=== PATIENT | female | born 1965 | race Caucasian/White ===

== ENCOUNTER 2023-05-26 21:39 | Emergency (ER) | payer OTHER ==
[2023-05-26 22:13] LABS: Absolute Lymphocytes (CBC) 1.6 K/uL (0.7-4.9); Hematocrit 44.5 % (36.0-45.0); Lymphocytes % 13.7 % (15.3-44.8); MCV 92.9 fL (80-100); MPV 8.4 fL (7.6-11.3); Platelets 207 thou/uL (152-406); RBC Red Blood Cell Count 4.79 M/uL (3.86-4.86)
[2023-05-26 22:19] LABS: Protime INR 1.26
[2023-05-26] MEDS ORDERED: ASPIRIN 81 MG CHEWABLE TABLET ONE (22:31)
[2023-05-26] MEDS ORDERED: PANTOPRAZOLE 40 MG INJ ONE (22:31)
[2023-05-26] MEDS ORDERED: LORAZEPAM 1 MG TABLET ONE (22:31)
[2023-05-26 22:32] LABS: Albumin 3.5 g/dL (3.4-5.0); Bilirubin Direct 0.2 mg/dL (0-0.2); Bilirubin Indirect, Calculated 0.5 mg/dL (0.2-0.8); Bilirubin Total 0.7 mg/dL (0.2-1.0); Troponin High Sensitivity 16.9 pg/mL (<58.9)
[2023-05-26] MEDS ORDERED: NA CHLORIDE 0.9% 1,000 ML ONE (22:32)
[2023-05-26] MEDS ORDERED: NA CHLORIDE 0.9% 250 ML ONE (22:32)
[2023-05-26] MEDS ORDERED: PROMETHAZINE INJ 25 MG/ML AMP ONE (22:34)
--- NOTE | 2023-05-26 22:35 | RAD REPORT ---
EXAM DESCRIPTION: [place] Single View05/26/2023 10:24 pm CLINICAL HISTORY: Dyspnea;Chest pain COMPARISON: No comparisons TECHNIQUE: Portable AP view of the chest. FINDINGS: Central interstitial prominence, with central predominant and basilar fluffy opacities. N o pneumothorax or effusion. The cardiomediastinal contours are unremarkable. Rhythm monitoring devic e in place. IMPRESSION: Findings suggestive of pulmonary edema as above.
[2023-05-26] MEDS ORDERED: KCL 20 MEQ/100 mL IVPB 100 ML IV ONE (23:22)
[2023-05-27] MEDS ORDERED: FUROSEMIDE 20 MG/ 2ML VIAL ONE (01:36)
[2023-05-27] MEDS ORDERED: FUROSEMIDE 20 MG TABLET ONE (01:39)
--- NOTE | 2023-05-27 01:48 | EDPHYS ---
Physician Documentation [facility] Name: Homa Teixeira Age: 57 yrs Sex: Female : 1965 Arrival Date: 05/26/2023 Time: 21:39 Bed 16 Private MD: ED Physician Ferdinand Mixon HPI: 05/26 21:56 This 57 yrs old Female presents to ER via Unassigned with complaints of CP, SOB, N/V. snw 21:56 The patient or guardian reports chest pain that is located primarily in the substernal snw area. Onset: suddenly, today, at 17:00. Onset: Pt was dx with Shingles three days ago and given antiviral and gabapentin - feels this may have precipitated N/V. The pain does not radiate. Associated signs and symptoms: Pertinent positives: nausea, shortness of breath, vomiting. The chest pain is described as clutching. Duration: The patient or guardian reports multiple episodes, took one SL NTG at home and then EMS gave one en route, helpful with CP. Pt has had three doses of Zofran, not helpful with nausea. Modifying factors: The symptoms are alleviated by NTG, X2. the symptoms are aggravated by breathing, N/V. Severity of pain: At its worst the pain was moderate severe. EMS care prior to arrival includes: nitroglycerin, supplemental oxygen, zofran. The patient has experienced similar episodes in the past. The patient has not recently seen a physician, PCP in [place]. Pt states she is a "snow bird". feels new rx for gabapentin may have precipitated nausea/vomiting. Historical: - Allergies: 22:11 No Known Allergies; pf1 - PMHx: 22:11 Myocardial infarction; LBBB; shingles-currently; arrhythmia; Congestive heart failure; pf1 left ventricular cardiomyopathy; breast cancer-in remission; - PSHx: 22:11 bilateral mastectomy; pf1 - Immunization history:: Adult Immunizations up to date, 4 doses of pfizer Last tetanus immunization: < 10 years ago Flu vaccine is up to date. - Social history:: Smoking status: Patient denies any tobacco usage or history of. Patient/guardian denies using alcohol, street drugs. ROS: 21:55 Eyes: Negative for injury, pain, redness, and discharge, snw 21:55 Neck: Negative for injury, pain, and swelling, Cardiovascular: Negative for palpitations, and edema, + chest pain 21:55 Back: Negative for injury and pain, : Negative for injury, bleeding, discharge, and swelling, MS/Extremity: Negative for injury and deformity, Skin: Negative for injury, rash, and discoloration, Neuro: Negative for headache, weakness, numbness, tingling, and seizure, Psych: Negative for depression, anxiety, suicide ideation, homicidal ideation, and hallucinations, 21:55 Constitutional: Positive for body aches, malaise, 21:55 ENT: Positive for dx with shingles behind left ear three days ago, 21:55 Respiratory: Positive for dyspnea on exertion, shortness of breath, 21:55 Abdomen/GI: Positive for nausea and vomiting, Exam: 21:45 Head/Face: Normocephalic, atraumatic. Eyes: Pupils equal round and reactive to light, snw extra-ocular motions intact. Lids and lashes normal. Conjunctiva and sclera are non-icteric and not injected. Cornea within normal limits. Periorbital areas with no swelling, redness, or edema. ENT: Nares patent. No nasal discharge, no septal abnormalities noted. Tympanic membranes are normal and external auditory canals are clear. Oropharynx with no redness, swelling, or masses, exudates, or evidence of obstruction, uvula midline. Mucous membranes moist. Neck: Trachea midline, no thyromegaly or masses palpated, and no cervical lymphadenopathy. Supple, full range of motion without nuchal rigidity, or vertebral point tenderness. No Meningismus. Chest/axilla: Normal chest wall appearance and motion. Nontender with no deformity. No lesions are appreciated. 21:45 Abdomen/GI: Soft, non-tender, with normal bowel sounds. No distension or tympany. No guarding or rebound. No evidence of tenderness throughout. Back: No spinal tenderness. No costovertebral tenderness. Full range of motion. 21:45 MS/ Extremity: Pulses equal, no cyanosis. Neurovascular intact. Full, normal range of motion. Neuro: Awake and alert, GCS 15, oriented to person, place, time, and situation. Cranial nerves II-XII grossly intact. Motor strength 5/5 in all extremities. Sensory grossly intact. Cerebellar exam normal. Normal gait. 21:45 Constitutional: The patient appears awake, anxious, pale, uncomfortable, 21:45 Cardiovascular: Rate: bradycardic, Rhythm: regular, left BBB, 21:45 Respiratory: mild respiratory distress is noted, Respirations: accessory muscle usage, shallow respirations, tachypnea, 21:45 Skin: Appearance: Color: pale, 21:45 Psych: Behavior/mood is anxious, Affect is animated, Vital Signs: 21:42 BP 136 / 104; Pulse 58; Resp 18; Temp 98.1; Pulse Ox 100% on R/A; Weight 86.18 kg; pf1 Height 5 ft. 5 in. ; 23:30 BP 147 / 97; Pulse 61; Resp 16; Pulse Ox 100% on 2 lpm NC; jb4 05/27 01:28 BP 132 / 95; Pulse 68; Resp 16; Pulse Ox 97% on 2 lpm NC; jb4 05/26 21:42 Body Mass Index 31.62 (86.18 kg, 165.1 cm) pf1 MDM: 05/26 21:42 Patient medically screened. snw 22:02 Differential diagnosis: abnormal EKG, acute myocardial infarction, stable angina, snw unstable angina. The patient was not given aspirin in the Emergency Department. Administered by EMS. BARI Risk Score: 1 - Three or more CAD risk factors, 1- Known CAD, 1 - ASA use in past 7 days, 1 - Recent [<24hrs] Severe Angina. Data reviewed: vital signs, nurses notes. I considered the following discharge prescriptions or medication management in the emergency department Medications were administered in the Emergency Department. See MAR. Counseling: I had a detailed discussion with the patient and/or guardian regarding the historical points, exam findings, and any diagnostic results supporting the discharge/admit diagnosis. 05/27 00:29 Response to treatment: the patient's symptoms have markedly improved after treatment. snw Awaiting: repeat Troponin. 00:34 ED course: CT to r/o PE performed secondary to hx of cancer, CHF, CP, SOB. CT results snw per rad partners reassuring: mild fluid overload, no significant coronary vessel calcifications, no PE. Awaiting second troponin and plan to dc pt home. Will give contact info for internal medicine providers and Dr. Lamb. 05/26 21:44 Order name: Basic Metabolic Panel; Complete Time: 22:44 snw 05/26 22:48 Interpretation: Abnormal: hypokalemia at 3.0 . snw 05/26 21:44 Order name: CBC with Diff; Complete Time: :44 snw 05/26 21:44 Order name: LFT's; Complete Time: :44 snw 05/26 21:44 Order name: Magnesium; Complete Time: 22:44 snw 05/26 21:44 Order name: NT PRO-BNP; Complete Time: 22:44 snw 05/26 21:44 Order name: PT-INR; Complete Time: 22:44 snw 05/26 21:44 Order name: Troponin HS; Complete Time: 22:44 snw 05/27 00:29 Order name: Troponin High Sensitivity; Complete Time: 01:47 snw 05/26 21:44 Order name: XRAY Chest (1 view); Complete Time: :44 snw 05/26 21:44 Order name: CT Chest For PE Angio snw 05/26 21:44 Order name: EKG; Complete Time: :45 w 05/26 21:44 Order name: Cardiac monitoring; Complete Time: 22:11 w 05/26 21:44 Order name: EKG - Nurse/Tech; Complete Time: 22:11 w 05/26 21:44 Order name: IV Saline Lock; Complete Time: :11 w 05/26 21:44 Order name: Labs collected and sent; Complete Time: 22:11 w 05/26 21:44 Order name: O2 Per Protocol; Complete Time: 22:11 w 05/26 21:44 Order name: O2 Sat Monitoring; Complete Time: 22:11 snw EC/11 21:45 Rate is 56 beats/min. Rhythm is regular. Left axis deviation noted. AL interval is snw prolonged. QRS interval is prolonged. Clinical impression: NSR w/ Non-specific ST/T Changes and L BBB per history. Administered Medications: 22:35 Drug: NS 0.9% IV 1000 ml IV at 75 ml/hr continuous Route: IV; Rate: 75 ml/hr; Site: jb4 left forearm; 22:35 Drug: LORazepam PO 1 mg PO once; sbulingual Route: PO; jb4 22:35 Drug: Promethazine IVP 12.5 mg IVP once; in 250ml NS Route: IVP; Site: left forearm; jb4 22:35 Drug: NS 0.9% IV 250 ml IV at bolus once Route: IV; Rate: bolus; Site: left forearm; jb4 22:35 Drug: Pantoprazole IVP 40 mg IVP once Route: IVP; Site: right forearm; jb4 22:36 Not Given (Given by EMSs): aspirinchewable tablet 324 mg PO once; 81 mg tablets x 4 jb4 23:32 Drug: Potassium Chloride IV 20 mEq IV at calculated rate once; administer over 1-2 jb4 hours Route: IV; Rate: calculated rate; Site: left forearm; 05/27 01:27 Drug: Furosemide PO 20 mg PO once Route: PO; jb4 Disposition: 05/26 23:58 I was immediately available on-site in the Emergency Department for consultation in the ms3 care of the patient. Disposition Summary: 05/27/23 01:47 Discharge Ordered Notes: Location: Home snw Condition: Stable snw Diagnosis - Unspecified systolic (congestive) heart failure snw - Other specified viral diseases snw - Angina pectoris, unspecified snw - Hypokalemia snw Followup: snw - With: Emergency Department - When: As needed - Reason: Worsening of condition Followup: snw - With: Private Physician - When: 1 week - Reason: Recheck today's complaints, Continuance of care, Re-evaluation by your physician Followup: snw - With: Ed Lamb MD - When: 1 week - Reason: Recheck today's complaints, Continuance of care Discharge Instructions: - Discharge Summary Sheet snw - Angina snw - Potassium Content of Foods snw - Nonspecific Chest Pain, Adult, [id number] snw - Viral Respiratory Infection, [id number] snw - Hypokalemia snw - Heart Failure Action Plan snw - Living With Heart Failure snw Forms: - Work release form snw - Medication Reconciliation Form snw - Thank You Letter snw - Antibiotic Education snw - Prescription Opioid Use snw - Patient Portal Instructions snw - Leadership Thank You Letter snw Signatures: Dispatcher [employer] EDMS Kaylee Gonzalez FNP-C RULING TECHNICIAN-Csnw Colten Bonilla RN RN jb4 Ferdinand Mixon DO DO ms3 Caroline Lyon RN RN pf1 Corrections: (The following items were deleted from the chart) 22:48 22:47 Abnormal: hypokalemia at 3.0. snw snw
--- NOTE | 2023-05-27 01:48 | ER ---
Nurse's Notes [facility] Name: Homa Teixeira Age: 57 yrs Sex: Female : 1965 Arrival Date: 05/26/2023 Time: 21:39 Bed 16 Private MD: Diagnosis: Unspecified systolic (congestive) heart failure;Other specified viral diseases;Angina pectoris, unspecified;Hypokalemia Presentation: 05/26 21:42 Chief complaint: Patient states: mid to right side chest pain that radiates to right pf1 arm with SOB and feeling disorientated,onset 1700. 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 21:42 Coronavirus screen: Vaccine status: Patient reports receiving the 2nd dose of the covid pf1 vaccine. 4 doses of Pfizer Client denies travel out of the [place] in the last 14 days. At this time, the client does not indicate any symptoms associated with coronavirus-19. Ebola Screen: Patient negative for fever greater than or equal to 101.5 degrees Fahrenheit, and additional compatible Ebola Virus Disease symptoms. Initial Sepsis Screen: Does the patient meet any 2 criteria? No. Patient's initial sepsis screen is negative. Does the patient have a suspected source of infection? No. Patient's initial sepsis screen is negative. Risk Assessment: Do you want to hurt yourself or someone else? Patient reports no desire to harm self or others. 21:42 Method Of Arrival: EMS: [facility] pf1 21:42 Acuity: ANABEL 2 pf1 Historical: - Allergies: 22:11 No Known Allergies; pf1 - PMHx: 22:11 Myocardial infarction; LBBB; shingles-currently; arrhythmia; Congestive heart failure; pf1 left ventricular cardiomyopathy; breast cancer-in remission; - PSHx: 22:11 bilateral mastectomy; pf1 - Immunization history:: Adult Immunizations up to date, 4 doses of pfizer Last tetanus immunization: < 10 years ago Flu vaccine is up to date. - Social history:: Smoking status: Patient denies any tobacco usage or history of. Patient/guardian denies using alcohol, street drugs. Screenin/12 02:07 [facility] ED Fall Risk Assessment (Adult) History of falling in the last 3 months, jb4 including since admission No falls in past 3 months (0 pts) Confusion or Disorientation No (0 pts). Abuse screen: Denies threats or abuse. Nutritional screening: No deficits noted. Tuberculosis screening: No symptoms or risk factors identified. Assessment: 05/26 22:00 General: Appears in no apparent distress. uncomfortable, Behavior is calm, cooperative, jb4 appropriate for age. Pain: Complains of pain in mid-sternal area Pain does not radiate. Pain currently is 8 out of 10 on a pain scale. Neuro: Level of Consciousness is awake, alert, obeys commands, Oriented to person, place, time, situation. Cardiovascular: Patient's skin is warm and dry. Respiratory: Airway is patent Respiratory effort is even, unlabored, Respiratory pattern is regular, symmetrical. GI: No signs and/or symptoms were reported involving the gastrointestinal system. : No signs and/or symptoms were reported regarding the genitourinary system. EENT: No signs and/or symptoms were reported regarding the EENT system. Derm: Skin is intact, Skin is pink, warm \T\ dry. Musculoskeletal: Circulation, motion, and sensation intact. Range of motion: intact in all extremities. 23:00 Reassessment: Patient appears in no apparent distress at this time. Patient and/or jb4 family updated on plan of care and expected duration. Pain level reassessed. Patient is alert, oriented x 3, equal unlabored respirations, skin warm/dry/pink. 23:59 Reassessment: Patient appears in no apparent distress at this time. Patient and/or jb4 family updated on plan of care and expected duration. Pain level reassessed. Patient is alert, oriented x 3, equal unlabored respirations, skin warm/dry/pink. 05/27 01:28 Reassessment: Patient appears in no apparent distress at this time. Patient and/or jb4 family updated on plan of care and expected duration. Pain level reassessed. Patient is alert, oriented x 3, equal unlabored respirations, skin warm/dry/pink. Vital Signs: 05/26 21:42 BP 136 / 104; Pulse 58; Resp 18; Temp 98.1; Pulse Ox 100% on R/A; Weight 86.18 kg; pf1 Height 5 ft. 5 in. ; 23:30 BP 147 / 97; Pulse 61; Resp 16; Pulse Ox 100% on 2 lpm NC; jb4 05/27 01:28 BP 132 / 95; Pulse 68; Resp 16; Pulse Ox 97% on 2 lpm NC; jb4 05/26 21:42 Body Mass Index 31.62 (86.18 kg, 165.1 cm) pf1 ED Course: 05/26 21:42 Patient arrived in ED. snw 21:42 Kaylee Gonzalez FNP-C is PHCP. snw 21:42 Ferdinand Mixon DO is Attending Physician. snw 22:02 Radiology exam delayed due to lab results not completed at this time. (BUN/Creatinine) eh4 IV insertion attempt and/or patient not having appropriate IV at this time. 22:10 Triage completed. pf1 22:26 XRAY Chest (1 view) In Process Unspecified. EDMS 23:14 CT Chest For PE Angio In Process Unspecified. EDMS 11 01:47 Ed Lamb MD is Referral Physician. snw 02:07 Patient has correct armband on for positive identification. Call light in reach. Side jb4 rails up X 1. Client placed on continuous cardiac and pulse oximetry monitoring. NIBP monitoring applied. library monitor on. Administered Medications: 05/26 22:35 Drug: NS 0.9% IV 1000 ml IV at 75 ml/hr continuous Route: IV; Rate: 75 ml/hr; Site: jb4 left forearm; 22:35 Drug: LORazepam PO 1 mg PO once; sbulingual Route: PO; jb4 22:35 Drug: Promethazine IVP 12.5 mg IVP once; in 250ml NS Route: IVP; Site: left forearm; jb4 22:35 Drug: NS 0.9% IV 250 ml IV at bolus once Route: IV; Rate: bolus; Site: left forearm; jb4 22:35 Drug: Pantoprazole IVP 40 mg IVP once Route: IVP; Site: right forearm; jb4 22:36 Not Given (Given by EMSs): aspirinchewable tablet 324 mg PO once; 81 mg tablets x 4 jb4 23:32 Drug: Potassium Chloride IV 20 mEq IV at calculated rate once; administer over 1-2 jb4 hours Route: IV; Rate: calculated rate; Site: left forearm; 05/27 01:27 Drug: Furosemide PO 20 mg PO once Route: PO; jb4 Medication: 02:07 VIS not applicable for this client. jb4 Outcome: 01:47 Discharge ordered by . lucas 02:07 Discharged to home ambulatory, jb4 02:07 Condition: stable 02:07 Discharge instructions given to patient, family, Instructed on discharge instructions, follow up and referral plans. Demonstrated understanding of instructions, follow-up care, 02:08 Patient left the ED. jb4 Signatures: Dispatcher [employer] EDMS Kaylee Gonzalez, GRAILS WEB APPLICATION DEVELOPER-C GRAILS WEB APPLICATION DEVELOPER-Csnw Colten Bonilla, RN RN jb4 Jase Garzon 4 Caroline Lyon RN RN pf1
[2023-05-27 02:14] VITALS: TEMP 98.1
[2023-05-27 02:17] VITALS: BP 132/95; O2SAT 97
--- NOTE | 2023-05-29 10:26 | RAD REPORT ---
EXAM DESCRIPTION: CT - Chest For Pe Angio - 05/27/2023 7:27 am CLINICAL HISTORY: 57 years, Female, Chest pain;Dyspnea COMPARISON: None. TECHNIQUE: Multiple transaxial tomograms of the chest were obtained from the lung apices through the lung bases utilizing 2 mm slice thickness at 2 mm interval reconstruction after the administration o f large bolus of IV contrast for complete opacification of the pulmonary arteries. Subsequent to 2-D and 3-D multiplanar reformats and maximum intensity projection images were generated in the sagittal and coronal planes. An individualized dose optimization technique, Automated Exposure Control, was utilized for the perfo rmed procedure. FINDINGS: CTA: The pulmonary arteries are adequately opacified. No evidence of pulmonary emboli or right heart strain. Limited assessment of the aorta due to early contrast phase. Lungs: There is haziness throughout the lung parenchyma with minimal bandlike densities corresponding to most likely air trapping and/or atelectasis. Less likely possibility of interstitial pulmonary ed brittney is considered. Airways: The trachea mainstem bronchus demonstrate to be unremarkable. Pleura: No evidence for pleural effusions Mediastinum and katharine: There is no significant mediastinal and/or hilar lymphadenopathy. The axillary regions demonstrate to be clear. Heart and pericardium: The heart is normal in size. No significant pericardial effusion Vessels: Coronary: No significant coronary artery calcifications. Aorta: See above. Other: There is no significant filling defects within the pulmonary arteries to suggest pulmonary embolus. Chest wall: The chest wall demonstrate to be within normal limits. There are prepectoral bilateral br east implants Neck base: No significant finding. Osseous: The bone windows demonstrate to be within normal limits. No evidence for compression deformi ties and/or significant skeletal lesions. Incidental findings: None Visualized upper abdomen: The visualized portions of the upper abdomen demonstrate unremarkable. Some reflux of contrast into the hepatic veins could suggest the possibility of right ventricular dysfunc tion IMPRESSION: No evidence of pulmonary embolus and/or thoracic aortic dissection. Diffuse haziness throughout the lung parenchyma with minimal bandlike densities corresponding to most likely air trapping and/or atelectasis. Less likely possibility of interstitial pulmonary edema is c onsidered. Some reflux of contrast into the hepatic veins could suggest the possibility of right ventricular dys function. Electronically signed by: Sheldon Jefferson MD 05/27/2023 12:06 AM MECHANIC/WELDER Due to temporary technical issues with the PACS/Fluency reporting system, reports are being signed by the in house radiologists without review as a courtesy to insure prompt reporting. The interpreting radiologist is fully responsible for the content of the report.
--- NOTE | 2023-05-30 17:35 | EKG ---
Test Date: 2023-05-26 Test Time: 21:44:08 Kiln Burner Helper: JONG MEASUREMENT RESULTS: Intervals: Rate: 56 OR: 234 QRSD: 158 QT: 522 QTc: 503 Liberal: P: 43 OR: 234 QRS: -49 T: 112 INTERPRETIVE STATEMENTS: Sinus bradycardia with 1st degree AV block Left axis deviation Left bundle branch block Abnormal ECG No previous ECG available for comparison Electronically Signed On 05-30-23 17:25:54 ABORIGINAL HOME SCHOOL LIAISON OFFICER by Ed Lamb
== END 2023-05-27 02:08 | disposition home or self-care (01) ==
LOC: ER 21:39
DX: I20.9 Angina pectoris, unspecified (principal); I50.20 Unspecified systolic (congestive) heart failure; E87.6 Hypokalemia; B34.8 Other viral infections of unspecified site; I25.2 Old myocardial infarction; Z85.3 Personal history of malignant neoplasm of breast
CPT/HCPCS: 93005; 85025; 80048; 36415; 83735; 85610; 80076; 84484 ×2; 83880; 71275; 71045; 99285; Q9967; J2550; J3480; C9113; J7050; J7030; J1940